=== PATIENT | female | born 1960 | race African-American/Black ===

== ENCOUNTER 2022-11-19 09:25 | Emergency (ER) | payer BC, OTHER ==
[~2022-11-19] VITALS: Ht 175.3 cm; Wt 79.5 kg
[2022-11-19 10:11] VITALS: BP 131/95
[2022-11-19] MEDS ORDERED: KETOROLAC TROMETH 30 MG/ML 1ML VIAL IM ONE (14:45)
[2022-11-19] MEDS ORDERED: IBUPROFEN 600 MG TAB PO ONE (15:15)
[2022-11-19] MEDS ORDERED: MORPHINE SULFATE INJ 2 MG/ml SYRG IM ONE (15:45)
[2022-11-19] MEDS ORDERED: ONDANSETRON ODT 4 MG TAB PO ONE (15:45)
[2022-11-19] MEDS ORDERED: IBUP600T28 PO (15:55)
[2022-11-19] MEDS ORDERED: CYCL-837 PO (15:55)
[2022-11-19] MEDS ORDERED: HYDROcodone-ACET 5/325MG TAB PO ONE (16:15)
== END 2022-11-19 16:46 | disposition home or self-care (01) ==
LOC: ER 09:25
DX: S46.911A Strain of unspecified muscle, fascia and tendon at shoulder and upper arm level, right arm, initial encounter (principal); I10 Essential (primary) hypertension; Z88.0 Allergy status to penicillin; X50.9XXA Other and unspecified overexertion or strenuous movements or postures, initial encounter; Y93.89 Activity, other specified; Y92.89 Other specified places as the place of occurrence of the external cause; Y99.8 Other external cause status
CPT/HCPCS: 73030; 96372; 99283; J1885; Q0162